=== PATIENT | female | born 1940 | race Caucasian/White ===

== ENCOUNTER → 2017-06-14 | Outpatient (CLI) | payer OTHER, MEDICARE | LOC: FIMAGING 12:18 | PROVIDERS: ATTEND Family Medicine Geriatric Medicine | DX: G81.94 Hemiplegia, unspecified affecting left nondominant side (principal); G31.9 Degenerative disease of nervous system, unspecified ==

== ENCOUNTER 2017-08-30 12:39 | Emergency (ER) | payer OTHER, MEDICARE ==
[2017-08-30 12:51] VITALS: BP 172/75; PULSE 53; RESP 19; TEMP 98.3; O2SAT 96
--- NOTE | 2017-08-30 15:10 | EDPHY ---
H & P Stated Complaint: Neck pain x one day. Time Seen by Provider: 08/30/17 14:55 HPI/ROS: CHIEF COMPLAINT: Neck pain HISTORY OF PRESENT ILLNESS: This patient is a 77 year old female with history of chronic neck pain complaining of severe neck pain intermittently for the last two weeks. She had fusion surgery in her lower back 10-12 years ago, and has had multiple procedures and orthopedic surgeries for arthritis. She has been evaluated at [facility] in the past, and MRI revealed bone spurs and disc bulges throughout her neck. Yesterday, her neck pain reached 10/10 severity with no known aggravation. This pain is similar to her severe back pain in the past. She now rates it around 8 or 9/10. The pain is increased with movement. She denies radiation of pain down either arm. No new weakness or numbness associated with her pain. She took two Tylenol last night, but has not tried anything else for pain relief. She saw her physical therapist yesterday for balance and walking therapy following frequent falls, and endorses pain when the therapist massaged her neck lightly. She denies any recent trauma or other concerns. REVIEW OF SYSTEMS: A 10 point review of systems was performed and is negative with the exception of the elements mentioned in the history of present illness. - Personal History Current Tetanus/Diphtheria Vaccine: Yes Current Tetanus Diphtheria and Acellular Pertussis (TDAP): Yes - Medical/Surgical History PMH: 1. Hyperlipidemia 2. CAD, stent placement 3. Myocardial infarction x2 4. Pancreatitis 5. Kidney stones 6. Hypertension 7. Asthma Hx Asthma: Yes Hx Chronic Respiratory Disease: No Hx Diabetes: No Hx Cardiac Disease: Yes Hx Renal Disease: Yes Hx Cirrhosis: No Hx Alcoholism: No Hx HIV/AIDS: No Hx Splenectomy or Spleen Trauma: No Other PMH: Cardiac stent, kidney stones, asthma, joint replacement - Social History Smoking Status: Never smoked Additional Social History: Lives independently at [facility]. PCP Dr. Shrestha. Retired. Recently moved back to [place]. - Physical Exam Exam: General Appearance: Alert, no distress Eyes: Pupils equal and round, no conjunctival pallor or injection ENT, Mouth: Mucous membranes moist Neck: Bilateral paraspinous tenderness Respiratory: Lungs are clear to auscultation Cardiovascular: Regular rate and rhythm Gastrointestinal: Abdomen is soft and non- tender Neurological: Alert, oriented x3, cranial nerves II through XII intact, motor 5 /5, sensory intact to light touch, normal gait, 2+ biceps reflexes Skin: Warm and dry, no rash Extremities: Nontender, no pedal edema Psychiatric: Mood and affect normal Constitutional: Initial Vital Signs Temperature (C) 36.8 C 08/30/17 12:45 Heart Rate 53 L 08/30/17 12:45 Respiratory Rate 19 08/30/17 12:45 Blood Pressure 172/75 H 08/30/17 12:45 O2 Sat (%) 96 08/30/17 12:45 O2 Delivery Mode Room Air Allergies/Adverse Reactions: diazepam [From Valium] Allergy (Verified 08/10/11 09:49) donepezil [From Aricept] Allergy (Verified 08/30/17 12:44) Home Medications: Medication Instructions Recorded AMLODIPINE BES/OLMESARTAN MED 2.5 DAILY 08/10/11 Aciphex 20 mg BID 08/10/11 Aspirin [Aspirin 81mg] 81 mg PO BID 08/10/11 B12 08/10/11 Calcium 08/10/11 Clopidogrel Bisulfate [Plavix] 75 mg PO DAILY 08/10/11 Clopidogrel Bisulfate [Plavix] 75 mg PO DAILY 08/10/11 FLUoxetine [Prozac] 40 mg PO DAILY 08/10/11 Lovaza 1 gm QID 08/10/11 METOPROLOL TARTRATE 25 mg PO BID 08/10/11 Nitroglycerin [Nitrostat] 0.4 mg SL 08/10/11 OXYGEN 08/10/11 Oxybutynin Chloride [Oxybutynin 10 mg PO DAILY 08/10/11 Chloride Er] VITAMIN D 08/10/11 LIZ KIRKLAND 15,000 UNITS CAPSULE QID 08/10/11 lamoTRIgine [Lamictal] 100 mg PO BID 08/10/11 Hydrocodone/APAP 5/325 [[place] 1 tab PO Q4H PRN #15 tab 08/30/17 5/325] Medical Decision Making ED Course/Re-evaluation: 77 year old female with history of chronic back pain and arthritis presents with worsening neck pain intermittent over the last two weeks. Physical exam reveals bilateral paraspinous tenderness. The patient is neurologically intact. We discussed further imaging studies today vs. follow up with her primary care provider. She is comfortable with outpatient follow up. Plan to discharge home in good condition with a prescription for Guy[place] for pain relief. Return precautions discussed. The patient is comfortable with this plan. Differential Diagnosis: Differential diagnosis includes though is not limited to compression fracture, epidural abscess, cervical radiculopathy, disc herniation Departure - Departure Disposition: Home, Routine, Self-Care Clinical Impression: Neck pain Condition: Good Instructions: Hydrocodone/Acetaminophen (By mouth), Neck Pain (ED) Additional Instructions: 1. Follow up with your primary care provider for further evaluation. Call today for an appointment to see her Saturday or Saturday. 2. Use ibuprofen and Tylenol as directed below for pain. Use Guy[place] as prescribed as needed for severe pain. Do not take Tylenol while you are taking Guy[place] as both these medications contain acetaminophen. 3. Return to the emergency department for severe pain, fever, weakness, numbness , or tingling, change in location or nature of pain or other concerns. Adult Pain Control: We recommend Acetaminophen (Tylenol) and Ibuprofen (Motrin,Advil) for pain control. When pain is severe, both drugs can be used at the same time, but at different intervals. Please note the time differences. Your dose is: Acetaminophen 650mg every 4 to 6 hours Ibuprofen 600mg every 6-8 hours with food Note: do not take Acetaminophen with Hydrocodone (Vicodin, Lortab) or Oxycodone (Percocet). These medications also contain Acetaminophen. No more than 3000mg of Acetaminophen should be taken in 24 hours (for an adult). Referrals: Trinity Linares MD [Primary Care Provider] - As per Instructions Prescriptions: Hydrocodone/APAP 5/325 [Guy[place] 5/325] 1 tab PO Q4H PRN #15 tab PRN Reason: Pain, Moderate Report Scribed for: Aspen Ngo Report Scribed by: Vika Salas Date of Report: 08/30/17 Time of Report: 15:11 Physician Review and Approval Statement: 08/30/17 15:11 Portions of this note were transcribed by a medical records tech. I personally performed a history, physical exam, medical decision making, and confirmed accuracy of information the transcribed note.
== END 2017-08-30 15:45 | disposition home or self-care (01) ==
DX: M54.2 Cervicalgia (principal); I25.10 Atherosclerotic heart disease of native coronary artery without angina pectoris; I10 Essential (primary) hypertension; I25.2 Old myocardial infarction; J45.909 Unspecified asthma, uncomplicated; Z79.82 Long term (current) use of aspirin; Z95.5 Presence of coronary angioplasty implant and graft

== ENCOUNTER 2019-03-18 09:07 | Inpatient (IN) | payer OTHER, MEDICARE ==
--- NOTE | 2019-03-18 09:42 | EDPHY ---
H & P Stated Complaint: dizzy, fall Time Seen by Provider: 03/18/19 09:20 HPI/ROS: CHIEF COMPLAINT: Dizzy HISTORY OF PRESENT ILLNESS: This is a an 78-year-old female with a history of coronary artery disease, Parkinson's disease, and hypertension who arrives by ambulance. She tells me that she was lying in bed this morning, sat up to look at her alarm clock, and had a sudden onset of spinning dizziness. When she tried to moved to get out of bed she fell to the floor. She has had similar symptoms in the past, but not this severe. She tells me that sometimes when she moves her head she gets a spinning sensation sensation and sometimes while at physical therapy with exertion she gets a spinning sensation. Last time this happened at physical therapy the therapist performed Marcus maneuvers and the dizziness resolved. She is feeling better now, no longer dizzy. She has not had nausea. She denies headache, confusion, difficulty with speech, new numbness, new weakness. She denies any chest pain or shortness of breath. She has not recently been ill. REVIEW OF SYSTEMS: A ten system review of systems was performed and is negative with the exception of the items mentioned in the HPI. Past medical history: 1. Parkinson's disease 2. Coronary artery disease status post stenting 3. Ureteral stones 4. Asthma 5. Hypertension 6. Bipolar Past surgical history: Joint replacement Social history: No tobacco or alcohol use. Trinity Linares, PCP. General Appearance: Alert. Vital signs reviewed. Eyes: Pupils equal and round, no conjunctival injection, no discharge. Anicteric. ENT, Mouth: Mucous membranes are moist, no oropharyngeal erythema or edema. Neck: No lymphadenopathy, supple. Respiratory: Lungs are clear to auscultation; no wheezes, rales, or rhonchi. Cardiovascular: Regular rate and rhythm; no murmur, rub, or gallop. Gastrointestinal: Abdomen is soft and nontender, no masses or organomegaly, bowel sounds normal. Skin: Warm and dry, no rashes on exposed skin, normal color. Back: Nontender to palpation over the thoracolumbar spine. No CVAT. Extremities: No lower extremity edema, no calf tenderness or swelling. Neurological: Alert and oriented. Moving all four extremities easily and equally. No nystagmus. Cranial nerves II through XII are examined and are intact (visual acuity not tested). Strength is 4 over 5 bilaterally with testing of all major motor groups, symmetric. Sensation is intact to light touch over all 4 extremities. Psychiatric: Normal affect. - Personal History Current Tetanus/Diphtheria Vaccine: Unsure Current Tetanus Diphtheria and Acellular Pertussis (TDAP): Unsure - Medical/Surgical History Hx Asthma: Yes Hx Chronic Respiratory Disease: No Hx Diabetes: No Hx Cardiac Disease: Yes Hx Renal Disease: Yes Hx Cirrhosis: No Hx Alcoholism: No Hx HIV/AIDS: No Hx Splenectomy or Spleen Trauma: No Other PMH: Cardiac stent, kidney stones, asthma, joint replacement, Parkinsons, arthritis, HTN - Social History Smoking Status: Never smoked Constitutional: Initial Vital Signs Temperature (C) 36.9 C 03/18/19 09:07 Heart Rate 67 03/18/19 09:07 Respiratory Rate 16 03/18/19 09:07 Blood Pressure 167/84 H 03/18/19 09:07 O2 Sat (%) 94 03/18/19 09:07 O2 Delivery Mode Room Air Allergies/Adverse Reactions: cat dander Allergy (Verified 03/18/19 13:37) diazepam [From Valium] Allergy (Verified 03/18/19 13:37) Vomiting Penicillins Allergy (Verified 03/18/19 13:37) Yeast Infection Home Medications: Medication Instructions Recorded Cholecalciferol Vit D3 [Vitamin D3 2,000 units PO DAILY 08/10/11 2000 units tab (OTC)] Cyanocobalamin [Vitamin B12 (*)] 1,000 mcg PO DAILY 08/10/11 FLUoxetine [Prozac] 40 mg PO DAILY 08/10/11 Lipase/Protease/Amylase [Zenpep Dr 1 each PO DAILY 08/10/11 15,000 Units Capsule] Aspirin [Aspirin 81mg (*)] 81 mg PO DAILY 03/18/19 C/E/Zn/Cu/OM3/DHA/EPA/LUT/ZEAX 1 each PO HS 03/18/19 [Preservision Areds 2 Softgel] Carbidopa/Levodopa 25/100Mg 3 tab PO TID@08,14,16 03/18/19 [Sinemet 25/100 MG (*)] Carboxymethylcellulose 1% [Refresh 1 drop EACHEYE DAILY PRN 03/18/19 Celluvisc (*)] Folic Acid [Folic Acid 1 MG (*)] 1 mg PO DAILY 03/18/19 Furosemide [Lasix 20 MG (*)] 20 mg PO DAILY 03/18/19 Herbals/Supplements -Info Only 1 ea PO DAILY 03/18/19 Icosapent Ethyl [Vascepa] 2 gm PO BID 03/18/19 Losartan Potassium [Cozaar 50 mg 75 mg PO HS 03/18/19 (*)] Mirabegron [Myrbetriq] 25 mg PO HS 03/18/19 Naproxen Sodium [Aleve 220 MG (*)] 220 mg PO BID PRN 03/18/19 Psyllium Husk (with Sugar) 1 each PO BID 03/18/19 [Metamucil Packet] Rivastigmine Tartrate 6 mg PO BID 03/18/19 [Rivastigmine] Rosuvastatin Calcium [Crestor 10mg 10 mg PO HS 03/18/19 (RX)] lamoTRIgine [LamICTAL 100 MG (*)] 150 mg PO DAILY 03/18/19 lamoTRIgine [Lamictal] 75 mg PO HS 03/18/19 Medical Decision Making ED Course/Re-evaluation: Patient initially stated that she was feeling better. CT scan of the brain shows no acute changes. Unfortunately, every time she tries to move her get out of the bed she becomes vertiginous and off balance. She was given p.o. Meclizine and 500 mL IV fluid with no relief. CBC and chemistries reviewed. She did not take any of her medications this morning. She quit taking her losartan because of a recall. She has not taken it for 2 days. She is noted to be hypertensive throughout her stay in the emergency department. Her dose of carbidopa levodopa was ordered for her. Her daughter tells me that she has not been taking any of her medications as prescribed. It seems that she may have missed her psychiatric medications for the last couple of days, perhaps longer. The patient lives independently at [facility]. She has a medication box with an alarm. It is possible that her dizziness is related to medication (or lack thereof). The nature of her dizziness is highly suggestive of benign positional vertigo. No obvious stroke or mass on head CT. May need MRI if she fails to improve. Will try valium for symptom relief. She is being admitted to the hospitalist service for further symptom treatment and evaluation. Differential Diagnosis: Dizziness including but not limited to peripheral and central causes of vertigo , orthostatic causes including dehydration, and blood loss. - Data Points Laboratory Results: Laboratory Results 03/18/19 10:00 03/18/19 10:00 Medications Given: Lipase/Protease/Amylase (Creon) 1 cap PO DAILY RONEY Stop: 09/15/19 08:59 Last Admin: 03/20/19 09:10 Dose: 1 cap Aspirin (Aspirin) 81 mg PO DAILY RONEY Stop: 09/15/19 08:59 Last Admin: 03/20/19 09:11 Dose: 81 mg Carbidopa/Levodopa (Sinemet) 3 tab PO TID@,12,16 RONEY Stop: 09/14/19 15:59 Last Admin: 03/20/19 09:11 Dose: 3 tab Enoxaparin Sodium (Lovenox) 40 mg SC DAILY RONEY Stop: 09/15/19 08:59 Last Admin: 03/20/19 09:13 Dose: 40 mg Fluoxetine HCl (Prozac) 40 mg PO DAILY RONEY Stop: 09/14/19 14:13 Last Admin: 03/20/19 09:13 Dose: 40 mg Folic Acid (Folic Acid) 1 mg PO DAILY RONEY Stop: 09/15/19 08:59 Last Admin: 03/20/19 09:13 Dose: 1 mg Furosemide (Lasix) 20 mg PO DAILY RONEY Stop: 09/15/19 08:59 Last Admin: 03/20/19 09:10 Dose: 20 mg Lamotrigine (Lamictal) 75 mg PO HS RONEY Stop: 09/14/19 20:59 Last Admin: 03/19/19 20:16 Dose: 75 mg Lamotrigine (Lamictal) 150 mg PO DAILY RONEY Stop: 09/14/19 15:14 Last Admin: 03/20/19 09:11 Dose: 150 mg Losartan Potassium (Cozaar) 75 mg PO HS RONEY Stop: 09/14/19 20:59 Last Admin: 03/19/19 20:14 Dose: 75 mg Meclizine HCl (Meclizine Hcl) 25 mg PO Q6H PRN PRN Reason: Dizziness Stop: 09/14/19 16:59 Last Admin: 03/19/19 07:37 Dose: 25 mg Psyllium Hydrophilic Mucilloid (Metamucil/Konsyl) 1 each PO BID RONEY Stop: 09/14/19 20:59 Last Admin: 03/20/19 09:10 Dose: 1 each Rivastigmine Tartrate (Exelon) 6 mg PO BID RONEY Stop: 09/14/19 20:59 Last Admin: 03/20/19 09:10 Dose: 6 mg Rosuvastatin Calcium (Crestor) 10 mg PO HS RONEY Stop: 09/14/19 20:59 Last Admin: 03/19/19 20:14 Dose: 10 mg Vitamin B Complex (Vitamin B12) 1,000 mcg PO DAILY RONEY Stop: 09/15/19 08:59 Last Admin: 03/20/19 09:13 Dose: 1,000 mcg Discontinued Medications Carbidopa/Levodopa (Sinemet Cr) 3 tab PO EDNOW ONE Stop: 03/18/19 12:51 Last Admin: 03/18/19 13:16 Dose: 3 tab Sodium Chloride (Ns) 500 mls @ 1,000 mls/hr IV EDNOW ONE PRN Reason: Protocol Stop: 03/18/19 11:37 Last Admin: 03/18/19 11:15 Dose: 500 mls Meclizine HCl (Meclizine Hcl) 25 mg PO ONCE ONE Stop: 03/18/19 11:09 Last Admin: 03/18/19 11:15 Dose: 25 mg Departure - Departure Disposition: [facility] Clinical Impression: Vertigo Hypertension Qualifiers: Hypertension type: essential hypertension Qualified Code(s): I10 - Essential ( primary) hypertension Condition: Fair
[2019-03-18 10:10] LABS: PLATELET COUNT 246 10^3/uL (150-400)
[2019-03-18] MEDS ORDERED: MECLIZINE HCL 25 MG TAB PO ONE (11:08)
[2019-03-18] MEDS ORDERED: NS 500 ML IV ONE (11:08)
[2019-03-18] MEDS ORDERED: CARBIDOPA/LEVO CR 25 MG/100 MG TAB PO ONE (12:50)
[2019-03-18] MEDS ORDERED: ONDANSETRON DISINTEGRATING 4 MG TAB PO PRN (13:11)
[2019-03-18] MEDS ORDERED: ACETAMINOPHEN 325 MG TAB PO PRN (13:11)
[2019-03-18] MEDS ORDERED: ONDANSETRON 4 MG/2 ML VIAL IVP PRN (13:11)
--- NOTE | 2019-03-18 14:08 | PDGENHP ---
History and Physical - Chief Complaint vertigo - History of Present Illness 78 yo female with h/o CAD, parkinsons, hypertension and bipolar presents to ED with dizziness. She awoke this am and when she sat up in bed, had sudden onset vertigo, which seemed positional. This caused her to fall out of bed. She denies hitting her head. Her symptoms have persisted. No N/V. She had a similar episode in the past, which resolved with Marcus's maneuver. In the ED a CT was negative for acute abnormality. She has ongoing symptoms with difficulty ambulating. She is admitted for further management. History Information - Allergies/Home Medication List Allergies/Adverse Reactions: cat dander Allergy (Verified 03/18/19 13:37) diazepam [From Valium] Allergy (Verified 03/18/19 13:37) Vomiting Penicillins Allergy (Verified 03/18/19 13:37) Yeast Infection Home Medications: Cholecalciferol Vit D3 [Vitamin D3 2000 units tab (OTC)] 2,000 units PO DAILY [Last Taken 03/17/19] Cyanocobalamin [Vitamin B12 (*)] 1,000 mcg PO DAILY 08/10/11 [Last Taken ] FLUoxetine [Prozac] 40 mg PO DAILY 08/10/11 [Last Taken 03/17/19] Lipase/Protease/Amylase [Zenpep Dr 15,000 Units Capsule] 1 each PO DAILY [Last Taken 03/17/19] Aspirin [Aspirin 81mg (*)] 81 mg PO DAILY 03/18/19 [Last Taken 03/17/19] C/E/Zn/Cu/OM3/DHA/EPA/LUT/ZEAX [Preservision Areds 2 Softgel] 1 each PO HS 03/18 [Last Taken 03/16/19] Carbidopa/Levodopa 25/100Mg [Sinemet 25/100 MG (*)] 3 tab PO TID@08,14,16 [Last Taken 03/17/19 14:00] Carboxymethylcellulose 1% [Refresh Celluvisc (*)] 1 drop EACHEYE DAILY PRN 03/18 [Last Taken Unknown] Folic Acid [Folic Acid 1 MG (*)] 1 mg PO DAILY 03/18/19 [Last Taken 03/17/19] Furosemide [Lasix 20 MG (*)] 20 mg PO DAILY 03/18/19 [Last Taken 03/17/19] Herbals/Supplements -Info Only 1 ea PO DAILY 03/18/19 [Last Taken Unknown] Icosapent Ethyl [Vascepa] 2 gm PO BID 03/18/19 [Last Taken 03/17/19 09:00] Losartan Potassium [Cozaar 50 mg (*)] 75 mg PO HS 03/18/19 [Last Taken 2 Weeks Ago ~03/04/19] Mirabegron [Myrbetriq] 25 mg PO HS 03/18/19 [Last Taken 03/16/19] Naproxen Sodium [Aleve 220 MG (*)] 220 mg PO BID PRN 03/18/19 [Last Taken Unknown] Psyllium Husk (with Sugar) [Metamucil Packet] 1 each PO BID 03/18/19 [Last Taken 03/17/19 09:00] Rivastigmine Tartrate [Rivastigmine] 6 mg PO BID 03/18/19 [Last Taken 03/17/19 09:00] Rosuvastatin Calcium [Crestor 10mg (RX)] 10 mg PO HS 03/18/19 [Last Taken ] lamoTRIgine [LamICTAL 100 MG (*)] 150 mg PO DAILY 03/18/19 [Last Taken 03/17/19] lamoTRIgine [Lamictal] 75 mg PO HS 03/18/19 [Last Taken 03/16/19] I have personally reviewed and updated: family history, medical history, social history, surgical history - Past Medical History coronary artery disease, hypertension Additional medical history: CAD with h/o [place] and prior stents. Parkinsons. Asthma. Bipolar d/o. H/O BPPV - Surgical History Reports: coronary stent Additional surgical history: joint replacement - Family History Positive for: non-pertinent - Social History Smoking Status: Never smoked Alcohol Use: None Drug Use: None Review of Systems Review of Systems: ROS: 10pt was reviewed & negative except for what was stated in HPI & below Physical Exam Physical Exam: Temp Pulse Resp BP Pulse Ox 36.9 C 81 16 129/59 H 94 03/18/19 14:00 03/18/19 14:00 03/18/19 14:00 03/18/19 14:00 03/18/19 14:00 Constitutional: no apparent distress Eyes: PERRL, other (+horizontal nystagmus to left) Ears, Nose, Mouth, Throat: moist mucous membranes Cardiovascular: regular rate and rhythym Respiratory: no respiratory distress, clear to auscultation Gastrointestinal: normoactive bowel sounds, soft, non-tender abdomen Skin: warm Musculoskeletal: full muscle strength Neurologic: AAOx3 Psychiatric: interacting appropriately Lab Data & Imaging Review 03/18/19 10:00 03/18/19 10:00 WBC 7.92 10^3/uL (3.80-9.50) 03/18/19 10:00 RBC 4.56 10^6/uL (4.18-5.33) 03/18/19 10:00 Hgb 13.9 g/dL (12.6-16.3) 03/18/19 10:00 Hct 42.0 % (38.0-47.0) 03/18/19 10:00 MCV 92.1 fL (81.5-99.8) 03/18/19 10:00 MCH 30.5 pg (27.9-34.1) 03/18/19 10:00 MCHC 33.1 g/dL (32.4-36.7) 03/18/19 10:00 RDW 13.4 % (11.5-15.2) 03/18/19 10:00 Plt Count 246 10^3/uL (150-400) 03/18/19 10:00 MPV 8.6 fL (8.7-11.7) L 03/18/19 10:00 Neut % (Auto) 75.1 % (39.3-74.2) H 03/18/19 10:00 Lymph % (Auto) 14.8 % (15.0-45.0) L 03/18/19 10:00 [place] % (Auto) 7.2 % (4.5-13.0) 03/18/19 10:00 Eos % (Auto) 2.1 % (0.6-7.6) 03/18/19 10:00 Baso % (Auto) 0.5 % (0.3-1.7) 03/18/19 10:00 Nucleat RBC Rel Count 0.0 % (0.0-0.2) 03/18/19 10:00 Absolute Neuts (auto) 5.95 10^3/uL (1.70-6.50) 03/18/19 10:00 Absolute Lymphs (auto) 1.17 10^3/uL (1.00-3.00) 03/18/19 10:00 Absolute Monos (auto) 0.57 10^3/uL (0.30-0.80) 03/18/19 10:00 Absolute Eos (auto) 0.17 10^3/uL (0.03-0.40) 03/18/19 10:00 Absolute Basos (auto) 0.04 10^3/uL (0.02-0.10) 03/18/19 10:00 Absolute Nucleated RBC 0.00 10^3/uL (0-0.01) 03/18/19 10:00 Immature Gran % 0.3 % (0.0-1.1) 03/18/19 10:00 Immature Gran # 0.02 10^3/uL (0.00-0.10) 03/18/19 10:00 Sodium 139 mEq/L (135-145) 03/18/19 10:00 Potassium 4.0 mEq/L (3.5-5.2) 03/18/19 10:00 Chloride 107 mEq/L (97-110) 03/18/19 10:00 Carbon Dioxide 28 mEq/l (22-31) 03/18/19 10:00 Anion Gap 4 mEq/L (6-14) L 03/18/19 10:00 BUN 18 mg/dL (7-23) 03/18/19 10:00 Creatinine 0.8 mg/dL (0.6-1.0) 03/18/19 10:00 Estimated GFR > 60 03/18/19 10:00 Glucose 96 mg/dL (70-100) 03/18/19 10:00 Calcium 9.7 mg/dL (8.5-10.4) 03/18/19 10:00 Assessment & Plan Assessment: Vertigo (Acute) - CT head neg. Presumed BPPV noting prior h/o similar symptoms resolved by Marcus's maneuver. -check MRI -prn meclizine, anti-emetics -PT/OT with Marcus's if able to do inpt -hold myrbetriq which can cause dizziness CAD with h/o [place] and prior stents - stable, CP free -cont home meds Hypertension - currently normotensive -cont home meds Parkinsons - cont home meds Asthma - no e/o exacerbation DVT PPLX - Lovenox Dispo - change to inpt for ongoing vertigo, need for further evaluation and tx
[2019-03-18] MEDS ORDERED: CARBOXYMETHYLCELLULOSE 1% 0.4 ML DROPERETTE EACHEYE PRN (14:13)
[2019-03-18] MEDS ORDERED: lamoTRIgine 100 MG TAB PO ONE (15:15)
[2019-03-18] MEDS ORDERED: FLUoxetine 20 MG CAP PO ONE (15:15)
[2019-03-18] MEDS: FLUoxetine 20 MG CAP PO SCH (15:28)
[2019-03-18] MEDS: CARBIDOPA/LEVODOPA 25 MG/100 MG TAB PO SCH (15:28)
[2019-03-18] MEDS: lamoTRIgine 100 MG TAB PO SCH (15:28)
[2019-03-18] MEDS ORDERED: CARBIDOPA/LEVODOPA 25 MG/100 MG TAB PO SCH (16:00)
[2019-03-18] MEDS: LOSARTAN POTASSIUM 50 MG TAB PO SCH (21:39)
[2019-03-18] MEDS: RIVASTIGMINE TARTRATE 1.5 MG CAP PO SCH (21:42)
[2019-03-18] MEDS: ROSUVASTATIN CALCIUM 10 MG TAB PO SCH (21:43)
[2019-03-18] MEDS: lamoTRIgine 25 MG TAB PO SCH (21:43)
[2019-03-18] MEDS: PSYLLIUM METAMUCIL 1 PKT PO SCH (21:44)
[2019-03-19] MEDS: MECLIZINE HCL 25 MG TAB PO PRN (07:37)
[2019-03-19] MEDS: CARBIDOPA/LEVODOPA 25 MG/100 MG TAB PO SCH ×3 (07:37→20:13)
[2019-03-19] MEDS ORDERED: lamoTRIgine 100 MG TAB PO SCH (09:00)
[2019-03-19] MEDS ORDERED: PROTEASE PO SCH (09:00)
[2019-03-19] MEDS ORDERED: AMYLASE PO SCH (09:00)
[2019-03-19] MEDS ORDERED: LIPASE PO SCH (09:00)
[2019-03-19] MEDS: ENOXAPARIN 40 MG/0.4 ML SYR SC SCH (09:56)
[2019-03-19] MEDS: FUROSEMIDE 20 MG TAB PO SCH (09:56)
[2019-03-19] MEDS: ASPIRIN 81 MG CHEWABLE TAB PO SCH (09:56)
[2019-03-19] MEDS: FLUoxetine 20 MG CAP PO SCH (09:56)
[2019-03-19] MEDS: PSYLLIUM METAMUCIL 1 PKT PO SCH ×2 (09:56→20:25)
[2019-03-19] MEDS: FOLIC ACID 1 MG TAB PO SCH (09:56)
[2019-03-19] MEDS: lamoTRIgine 100 MG TAB PO SCH (09:56)
[2019-03-19] MEDS: CYANO/VITAMIN B12 1000 MCG TAB PO SCH (09:57)
[2019-03-19] MEDS: LIPASE 12,000/AMYLASE/PROTEASE (CREON) 1 CAP PO SCH (09:57)
[2019-03-19] MEDS: RIVASTIGMINE TARTRATE 1.5 MG CAP PO SCH ×2 (09:57→20:16)
--- NOTE | 2019-03-19 12:56 | ASMTCMCOM ---
CM Note CM Note Notes: 03/19/2019 Case Management Note Pt admitted for dizziness with a history of Parkinsons and bipolar. Met w/pt. Pt resides [facility]. Pt attends PT OT with [facility]. Pt uses [facility] for transport or [facility]. Pt daughter nearby for help. Discussed home care. Pt chose [facility]. Notified via allscripts and phone. Case Management d/c poc: Home with [facility] RN PT OT. Case Management to follow. Date Signed: 03/19/2019 12:56 PM Electronically Signed By:Martha Laughlin RN
--- NOTE | 2019-03-19 13:08 | HOSPPROG ---
Hospitalist Progress Note Assessment/Plan: Vertigo (Acute) - CT head neg. Presumed BPPV noting prior h/o similar symptoms resolved by Marcus's maneuver. -prn meclizine, anti-emetics -PT/OT with Marcus's if able to do inpt -hold myrbetriq which can cause dizziness -will check orthostatics (neg) -defer MRI given clinically improving CAD with h/o [place] and prior stents - stable, CP free -cont home meds Hypertension - currently normotensive -cont home meds Parkinsons - cont home meds Asthma - no e/o exacerbation DVT PPLX - Lovenox Dispo - change to inpt for ongoing vertigo, need for acute PT/OT, pt not feeling ready for dc yet, likely dc in am Subjective: Pt doing a little better. Ambulating in halls with walker, but doesn't feel safe discharging home yet. No N/V. No headaches. Less dizzy, but not completely resolved. Objective: Vital Signs Temp Pulse Resp BP Pulse Ox 36.6 C 71 16 134/63 H 92 03/19/19 11:30 03/19/19 11:30 03/19/19 11:30 03/19/19 11:30 03/19/19 11:30 03/18/19 03/19/19 03/20/19 05:59 05:59 05:59 Intake Total 1400 Balance 1400 - Physical Exam Constitutional: no apparent distress Eyes: PERRL Ears, Nose, Mouth, Throat: moist mucous membranes Cardiovascular: regular rate and rhythym Respiratory: no respiratory distress Gastrointestinal: normoactive bowel sounds, soft, non-tender abdomen Skin: warm Neurologic: AAOx3 Psychiatric: interacting appropriately ICD10 Worksheet Patient Problems: Problems Problem Status Onset Vertigo Acute
--- NOTE | 2019-03-19 16:17 | PDMN ---
Medical Necessity Medical necessity: Change to IP, as of 03/19/19, per MD & MCG M-152; los >2 mn for ongoing management of persistent vertigo (presumed BPPV); requiring further monitoring, orthostatic vitals & therapies; comorbid advanced age, parkinsons, CAD
[2019-03-19] MEDS: LOSARTAN POTASSIUM 50 MG TAB PO SCH (20:14)
[2019-03-19] MEDS: ROSUVASTATIN CALCIUM 10 MG TAB PO SCH (20:14)
[2019-03-19] MEDS: lamoTRIgine 25 MG TAB PO SCH (20:16)
[2019-03-20] MEDS: FUROSEMIDE 20 MG TAB PO SCH (09:10)
[2019-03-20] MEDS: PSYLLIUM METAMUCIL 1 PKT PO SCH ×2 (09:10→20:22)
[2019-03-20] MEDS: RIVASTIGMINE TARTRATE 1.5 MG CAP PO SCH ×2 (09:10→20:21)
[2019-03-20] MEDS: LIPASE 12,000/AMYLASE/PROTEASE (CREON) 1 CAP PO SCH (09:10)
[2019-03-20] MEDS: ASPIRIN 81 MG CHEWABLE TAB PO SCH (09:11)
[2019-03-20] MEDS: CARBIDOPA/LEVODOPA 25 MG/100 MG TAB PO SCH ×3 (09:11→18:07)
[2019-03-20] MEDS: lamoTRIgine 100 MG TAB PO SCH (09:11)
[2019-03-20] MEDS: ENOXAPARIN 40 MG/0.4 ML SYR SC SCH (09:13)
[2019-03-20] MEDS: FOLIC ACID 1 MG TAB PO SCH (09:13)
[2019-03-20] MEDS: FLUoxetine 20 MG CAP PO SCH (09:13)
[2019-03-20] MEDS: CYANO/VITAMIN B12 1000 MCG TAB PO SCH (09:13)
--- NOTE | 2019-03-20 09:18 | HOSPPROG ---
Hospitalist Progress Note Assessment/Plan: #Vertigo: improved today. CT head neg. Presumed BPPV noting prior h/o similar symptoms resolved by Marcus's maneuver. -prn meclizine, anti-emetics -PT/OT with Marcus's if able to do inpt -hold myrbetriq which can cause dizziness -will check orthostatics (neg) -defer MRI given clinically improving #CAD with h/o RI and prior stents - stable, CP free -cont home meds #Hypertension - currently normotensive -cont home meds #Parkinsons - cont home meds #Asthma - no e/o exacerbation DVT PPLX - Lovenox Dispo -inpatient admission for continued therapies. Pt not feeling ready for dc yet, likely dc in am Subjective: vertigo improved after therapy today Objective: Vital Signs Temp Pulse Resp BP Pulse Ox 36.6 C 67 17 163/84 H 90 L 03/20/19 07:08 03/20/19 07:08 03/20/19 07:08 03/20/19 07:08 03/20/19 07:08 03/19/19 03/20/19 03/21/19 05:59 05:59 05:59 Intake Total 800 Balance 800 - Time Spent With Patient Time Spent with Patient: greater than 35 minutes Time Spent with Patient: Greater than 35 minutes spent on this patients care, greater than 50% of time spent counseling, educating, and coordinating care regarding the above mentioned plan. - Physical Exam Constitutional: no apparent distress Eyes: PERRL Ears, Nose, Mouth, Throat: moist mucous membranes Cardiovascular: regular rate and rhythym Respiratory: no respiratory distress Gastrointestinal: normoactive bowel sounds Genitourinary: no bladder fullness Skin: warm Neurologic: AAOx3, CN II-XII Intact Psychiatric: interacting appropriately ICD10 Worksheet Patient Problems: Problems Problem Status Onset Hypertension Acute Vertigo Acute
--- NOTE | 2019-03-20 11:51 | ASMTCMCOM ---
CM Note CM Note Notes: CM reviewed pts chart. PT is recommending pt follows up with outpatient rehab. OT has cleared pt to d/c home without any needs. CM available for changes. Plan: Independent Date Signed: 03/20/2019 11:50 AM Electronically Signed By:LIDIA Butcher
[2019-03-20] MEDS: MECLIZINE HCL 25 MG TAB PO PRN (18:10)
[2019-03-20] MEDS: LOSARTAN POTASSIUM 50 MG TAB PO SCH (20:21)
[2019-03-20] MEDS: ROSUVASTATIN CALCIUM 10 MG TAB PO SCH (20:22)
[2019-03-20] MEDS: lamoTRIgine 25 MG TAB PO SCH (20:22)
[2019-03-21] MEDS: MELATONIN 3 MG TAB PO PRN ×2 (00:31→20:55)
[2019-03-21] MEDS: RIVASTIGMINE TARTRATE 1.5 MG CAP PO SCH ×2 (10:11→20:56)
[2019-03-21] MEDS: FUROSEMIDE 20 MG TAB PO SCH (10:12)
[2019-03-21] MEDS: CARBIDOPA/LEVODOPA 25 MG/100 MG TAB PO SCH ×3 (10:12→18:26)
[2019-03-21] MEDS: LIPASE 12,000/AMYLASE/PROTEASE (CREON) 1 CAP PO SCH (10:12)
[2019-03-21] MEDS: lamoTRIgine 100 MG TAB PO SCH (10:12)
[2019-03-21] MEDS: CYANO/VITAMIN B12 1000 MCG TAB PO SCH (10:13)
[2019-03-21] MEDS: ASPIRIN 81 MG CHEWABLE TAB PO SCH (10:13)
[2019-03-21] MEDS: ENOXAPARIN 40 MG/0.4 ML SYR SC SCH (10:13)
[2019-03-21] MEDS: FLUoxetine 20 MG CAP PO SCH (10:13)
[2019-03-21] MEDS: FOLIC ACID 1 MG TAB PO SCH (10:18)
[2019-03-21] MEDS: PSYLLIUM METAMUCIL 1 PKT PO SCH ×2 (10:19→21:05)
[2019-03-21] MEDS ORDERED: NS 1,000 ML IV SCH (11:30)
--- NOTE | 2019-03-21 11:30 | HOSPPROG ---
Hospitalist Progress Note Assessment/Plan: #Vertigo: not improved. CT head neg. Presumed BPPV, but symptoms not improved with Marcus's -MRI to r/o cerebellar stroke #CAD with h/o NV and prior stents - stable, CP free -cont home meds #Hypertension - currently normotensive -cont home meds #Parkinsons - cont home meds #Asthma - no e/o exacerbation DVT PPLX - Lovenox Dispo -inpatient admission for continued therapies. Pt not feeling ready for dc yet, likely dc in am Subjective: still nauseated this morning. Dizziness persistent, kelly laying back Objective: Vital Signs Temp Pulse Resp BP Pulse Ox 36.6 C 56 L 16 165/67 H 94 03/21/19 07:24 03/21/19 07:24 03/21/19 07:24 03/21/19 07:24 03/21/19 07:24 03/20/19 03/21/19 03/22/19 05:59 05:59 05:59 Intake Total 800 Balance 800 - Time Spent With Patient Time Spent with Patient: greater than 35 minutes Time Spent with Patient: Greater than 35 minutes spent on this patients care, greater than 50% of time spent counseling, educating, and coordinating care regarding the above mentioned plan. - Physical Exam Constitutional: other (tired) Eyes: PERRL Ears, Nose, Mouth, Throat: moist mucous membranes Cardiovascular: regular rate and rhythym Respiratory: no respiratory distress Gastrointestinal: normoactive bowel sounds Genitourinary: no bladder fullness Skin: warm Musculoskeletal: full muscle strength Neurologic: AAOx3, sensation intact bilaterally, CN II-XII Intact Psychiatric: interacting appropriately ICD10 Worksheet Patient Problems: Problems Problem Status Onset Hypertension Acute Vertigo Acute
[2019-03-21] MEDS: LOSARTAN POTASSIUM 50 MG TAB PO SCH (20:55)
[2019-03-21] MEDS: ROSUVASTATIN CALCIUM 10 MG TAB PO SCH (20:55)
[2019-03-21] MEDS: lamoTRIgine 25 MG TAB PO SCH (20:56)
[2019-03-22] MEDS: ENOXAPARIN 40 MG/0.4 ML SYR SC SCH (08:52)
[2019-03-22] MEDS: FUROSEMIDE 20 MG TAB PO SCH (08:53)
[2019-03-22] MEDS: CYANO/VITAMIN B12 1000 MCG TAB PO SCH (08:53)
[2019-03-22] MEDS: LIPASE 12,000/AMYLASE/PROTEASE (CREON) 1 CAP PO SCH (08:53)
[2019-03-22] MEDS: lamoTRIgine 100 MG TAB PO SCH (08:53)
[2019-03-22] MEDS: CARBIDOPA/LEVODOPA 25 MG/100 MG TAB PO SCH ×3 (08:53→17:08)
[2019-03-22] MEDS: ASPIRIN 81 MG CHEWABLE TAB PO SCH (08:53)
[2019-03-22] MEDS: FLUoxetine 20 MG CAP PO SCH (08:54)
[2019-03-22] MEDS: FOLIC ACID 1 MG TAB PO SCH (08:54)
[2019-03-22] MEDS: PSYLLIUM METAMUCIL 1 PKT PO SCH ×2 (11:09→21:22)
[2019-03-22] MEDS: RIVASTIGMINE TARTRATE 1.5 MG CAP PO SCH ×2 (12:38→21:22)
[2019-03-22] MEDS ORDERED: NS 1,000 ML IV SCH (13:00)
--- NOTE | 2019-03-22 15:07 | ASMTCMCOM ---
CM Note CM Note Notes: CM met with pt. Pt has been accepted and wants to discharged to [facility]. [facility] has been notified that Pt will most likely be discharged 03/23. CM to follow. Plan: [facility] Date Signed: 03/22/2019 03:07 PM Electronically Signed By:Laura Gaffney
--- NOTE | 2019-03-22 16:15 | HOSPPROG ---
Hospitalist Progress Note Assessment/Plan: #Vertigo: not improved. CT head neg. Presumed BPPV. Eply's not performed due to chronic neck pain -MRI to r/o cerebellar stroke -query if due to increase dose of Parkinson's meds. Will call her Neurologist tomorrow -check BMP, TSH #CAD with h/o CA and prior stents - stable, CP free -cont home meds #Hypertension - currently normotensive -cont home meds #Parkinsons - cont home med #Asthma - no e/o exacerbation DVT PPLX - Lovenox Dispo -inpatient admission for continued therapies. Accepted to [facility] Spoke with daughter, Angelica on phone. Sinemet be upitrated by Dr. Lynne (Neuro ) over past few weeks. Subjective: mild dizziness today. No emesis Objective: Vital Signs Temp Pulse Resp BP Pulse Ox 36.5 C 71 22 H 125/82 H 93 03/22/19 15:49 03/22/19 15:49 03/22/19 15:49 03/22/19 15:49 03/22/19 15:49 Laboratory Results 03/22/19 13:30 03/21/19 03/22/19 03/23/19 05:59 05:59 05:59 Intake Total 400 480 Balance 400 480 - Time Spent With Patient Time Spent with Patient: greater than 35 minutes Time Spent with Patient: Greater than 35 minutes spent on this patients care, greater than 50% of time spent counseling, educating, and coordinating care regarding the above mentioned plan. - Physical Exam Constitutional: no apparent distress, other Eyes: PERRL Ears, Nose, Mouth, Throat: moist mucous membranes Cardiovascular: regular rate and rhythym Respiratory: no respiratory distress Gastrointestinal: normoactive bowel sounds Genitourinary: no bladder fullness Musculoskeletal: generalized weakness Neurologic: AAOx3, CN II-XII Intact, other (resting tremor) ICD10 Worksheet Patient Problems: Problems Problem Status Onset Hypertension Acute Vertigo Acute
[2019-03-22] MEDS: LOSARTAN POTASSIUM 50 MG TAB PO SCH (21:21)
[2019-03-22] MEDS: MELATONIN 3 MG TAB PO PRN (21:21)
[2019-03-22] MEDS: ROSUVASTATIN CALCIUM 10 MG TAB PO SCH (21:21)
[2019-03-22] MEDS: lamoTRIgine 25 MG TAB PO SCH (21:22)
[2019-03-22] MEDS: (Icosapent Ethyl [Vascepa] 2 GM) PO SCH (21:24)
[2019-03-22] MEDS: PRESERVISION AREDS2 FORMULA EYE VIT 1 EACH PO SCH (21:24)
[2019-03-23] MEDS: traZODone 50 MG TAB PO PRN ×2 (02:36→21:15)
[2019-03-23] MEDS ORDERED: Herbals/Supplements -Info Only PO SCH (09:00)
[2019-03-23] MEDS: CYANO/VITAMIN B12 1000 MCG TAB PO SCH (09:37)
[2019-03-23] MEDS: CARBIDOPA/LEVODOPA 25 MG/100 MG TAB PO SCH ×3 (09:37→16:24)
[2019-03-23] MEDS: CHOLECALCIFEROL VIT D3 2,000 UNITS TAB/CAP PO SCH (09:38)
[2019-03-23] MEDS: LIPASE 12,000/AMYLASE/PROTEASE (CREON) 1 CAP PO SCH (09:38)
[2019-03-23] MEDS: FLUoxetine 20 MG CAP PO SCH (09:38)
[2019-03-23] MEDS: ASPIRIN 81 MG CHEWABLE TAB PO SCH (09:38)
[2019-03-23] MEDS: FUROSEMIDE 20 MG TAB PO SCH (09:38)
[2019-03-23] MEDS: FOLIC ACID 1 MG TAB PO SCH (09:38)
[2019-03-23] MEDS: lamoTRIgine 100 MG TAB PO SCH (09:39)
[2019-03-23] MEDS: ENOXAPARIN 40 MG/0.4 ML SYR SC SCH (09:39)
[2019-03-23] MEDS: (Icosapent Ethyl [Vascepa] 2 GM) PO SCH ×2 (09:39→21:17)
[2019-03-23] MEDS: PSYLLIUM METAMUCIL 1 PKT PO SCH ×2 (09:40→21:16)
[2019-03-23] MEDS: RIVASTIGMINE TARTRATE 1.5 MG CAP PO SCH ×2 (10:23→21:15)
[2019-03-23] MEDS: MECLIZINE HCL 25 MG TAB PO PRN (13:22)
--- NOTE | 2019-03-23 13:47 | HOSPPROG ---
Hospitalist Progress Note Assessment/Plan: #Vertigo: not improved. CT head neg. Presumed BPPV. Eply's not performed due to chronic neck pain -MRI negative for stroke -query if due to increase dose of Parkinson's meds? Left VM for Dr. Lynne ( primary Neurologist -normal orthostatics, BMP/TSH WNL. Check carotid U/S #CAD with h/o SD and prior stents - stable, CP free -cont home meds #Hypertension - currently normotensive -cont home meds #Parkinsons - cont home med #Asthma - no e/o exacerbation DVT PPLX - Lovenox Dispo -inpatient admission for continued therapies. CM assisting with SNF placement Subjective: hallucinations last night. Still some vertigo when lays straight back, not with peipheral movements Objective: Vital Signs Temp Pulse Resp BP Pulse Ox 36.5 C 70 17 111/53 L 92 03/23/19 12:00 03/23/19 12:00 03/23/19 12:00 03/23/19 12:00 03/23/19 12:00 Laboratory Results 03/22/19 13:30 03/22/19 03/23/19 03/24/19 05:59 05:59 05:59 Intake Total 400 980 Balance 400 980 - Time Spent With Patient Time Spent with Patient: greater than 35 minutes Time Spent with Patient: Greater than 35 minutes spent on this patients care, greater than 50% of time spent counseling, educating, and coordinating care regarding the above mentioned plan. - Physical Exam Constitutional: other (fatigued) Ears, Nose, Mouth, Throat: moist mucous membranes, No hard of hearing Cardiovascular: regular rate and rhythym, No edema Respiratory: no respiratory distress Gastrointestinal: normoactive bowel sounds Genitourinary: no bladder fullness Skin: warm Neurologic: AAOx3, CN II-XII Intact, other (resting tremor) ICD10 Worksheet Patient Problems: Problems Problem Status Onset Hypertension Acute Vertigo Acute
--- NOTE | 2019-03-23 15:08 | ASMTCMCOM ---
CM Note CM Note Notes: Spoke with patient who was having some doubts about [facility]. Patient's questions and concerns were addressed and she is now supportive of going to [facility]. Patient did state she was not feeling well at all today and she had a return of serious vertigo and hallucinations. She wonders if her medications could be part of this. She hopes to see a neurologist while she is here for a consult. Spoke with Dr. Corrales to let her know patient's concerns. Discharge may be delayed until tomorrow while Dr. Corrales investigates patient's current symptoms. CM will follow. Date Signed: 03/23/2019 03:04 PM Electronically Signed By:Lauren Fraga LCSW
[2019-03-23] MEDS ORDERED: NS 1,000 ML IV SCH (16:00)
[2019-03-23] MEDS: LOSARTAN POTASSIUM 50 MG TAB PO SCH (21:15)
[2019-03-23] MEDS: PRESERVISION AREDS2 FORMULA EYE VIT 1 EACH PO SCH (21:15)
[2019-03-23] MEDS: ROSUVASTATIN CALCIUM 10 MG TAB PO SCH (21:16)
[2019-03-23] MEDS: lamoTRIgine 25 MG TAB PO SCH (21:16)
[2019-03-24] MEDS: CYANO/VITAMIN B12 1000 MCG TAB PO SCH (09:37)
[2019-03-24] MEDS: FLUoxetine 20 MG CAP PO SCH (09:37)
[2019-03-24] MEDS: LIPASE 12,000/AMYLASE/PROTEASE (CREON) 1 CAP PO SCH (09:37)
[2019-03-24] MEDS: CHOLECALCIFEROL VIT D3 2,000 UNITS TAB/CAP PO SCH (09:37)
[2019-03-24] MEDS: CARBIDOPA/LEVODOPA 25 MG/100 MG TAB PO SCH ×3 (09:38→17:20)
[2019-03-24] MEDS: lamoTRIgine 100 MG TAB PO SCH (09:39)
[2019-03-24] MEDS: FOLIC ACID 1 MG TAB PO SCH (09:39)
[2019-03-24] MEDS: RIVASTIGMINE TARTRATE 1.5 MG CAP PO SCH ×2 (09:40→20:02)
[2019-03-24] MEDS: ENOXAPARIN 40 MG/0.4 ML SYR SC SCH (09:40)
[2019-03-24] MEDS: (Icosapent Ethyl [Vascepa] 2 GM) PO SCH ×2 (09:41→20:11)
[2019-03-24] MEDS: PSYLLIUM METAMUCIL 1 PKT PO SCH ×2 (09:41→20:09)
[2019-03-24] MEDS: ASPIRIN 81 MG CHEWABLE TAB PO SCH (09:44)
--- NOTE | 2019-03-24 12:19 | PDIAF ---
- Diagnosis Diagnosis: Vertigo, parkinson's Code Status: Do Not Resuscitate - Medication Management Discharge Medications: electronically signed and located in the Home Medication List. - Orders Services needed: Registered Nurse, Certified Para Machine Operator, Physical Therapy, Occupational Therapy Diet Recommendation: no restrictions on diet Diet Texture: Regular Texture Diet Additional Instructions: Follow up with Neurologist. Dr. Lynne - Follow Up Care Current Providers and Referrals: Patient,NotPresent [Unknown] - As per Instructions
--- NOTE | 2019-03-24 12:47 | GDS ---
[f rep st] DISCHARGE SUMMARY DISCHARGE DIAGNOSES: 1. Vertigo. 2. Parkinson disease. 3. Hypertension. 4. Coronary artery disease with history of myocardial infarction and prior stents. 5. Asthma. 6. Bipolar disorder. HISTORY OF PRESENT ILLNESS: A 78-year-old female with Parkinson disease, CAD, bipolar disorder, pres ents with dizziness/vertigo. She woke up this morning. When she sat in bed she had a sudden onset o f vertigo which seems positional. This caused her to fall out of bed. She denies hitting her head o r having loss of consciousness. She had a similar episode in the past, which resolved with Marcus man euvers. CT in the ER was negative for acute abnormality. She had difficulty ambulating, thus requir ed further inpatient evaluation. HOSPITAL COURSE BY PROBLEM: 1. Vertigo/dizziness: Symptoms improved with meclizine, but not with Marcus maneuvers. Initial CT h ead was negative. Given persistent symptoms, MRI was done and was negative for stroke. Carotid ultr asound also normal. She had normal orthostatics, but borderline blood pressure. Normal electrolytes , TSH. Discontinue Lasix. This might be contributing to dehydration. 2. Parkinson disease. She has had increased hallucinations. I spoke to her neurologist at [facility], Dr. Lynne, who recommended decreasing dose to 2.5 tabs 3 times a day. His office will call to make an ap pointment sooner than her scheduled one now. 3. Asthma. No exacerbation. 4. Hypertension. Resume home medications. 5. CAD. Chest-pain free. Continue aspirin and statin. 6. Overactive bladder. Discontinue Myrbetriq since it can cause increased hallucinations. DISPOSITION: Patient is stable for discharge to rehab. MEDICATION CHANGES: Discontinued Lasix 20 mg daily and Myrbetriq. FOLLOWUP: 1. Dr. Lynne. 2. Primary care physician. PHYSICAL EXAMINATION: VITAL SIGNS: Today, temperature is 113/40, heart rate in the 70s, respiration s 16, 93% on room air. GENERAL: Less fatigued, smiling, no acute distress HEENT: PERRLA. Moist mu cous membranes. CV: Regular rhythm. No lower extremity edema. LUNGS: Clear. ABDOMEN: Soft, non tender, nondistended. Positive bowel sounds. : No Mar. NEURO: 2 through 12 intact. PSYCH: Alert and oriented x3. TIME SPENT ON DISCHARGE: Greater 30 minutes counseling patient on followup and coordinating with marium e management. /[id number]/MODL
--- NOTE | 2019-03-24 15:48 | HOSPPROG ---
Hospitalist Progress Note Assessment/Plan: DC canceled due to insurance authorization. Will DC tomorrow Objective: Vital Signs Temp Pulse Resp BP Pulse Ox 36.5 C 72 16 112/55 L 91 L 03/24/19 15:47 03/24/19 15:47 03/24/19 15:47 03/24/19 15:47 03/24/19 15:47 Laboratory Results 03/22/19 13:30 03/23/19 03/24/19 03/25/19 05:59 05:59 05:59 Intake Total 980 550 Balance 980 550 ICD10 Worksheet Patient Problems: Problems Problem Status Onset Hypertension Acute Vertigo Acute
--- NOTE | 2019-03-24 16:28 | ASMTCMCOM ---
CM Note CM Note Notes: Spoke with [facility] who thought patient was going to change to home health care. Patient will need SNF placement and so a PASRR was completed and submitted for the patient. CM to talk to Harman tomorrow to see if we can expedite the process ([phone]). Patient was informed about the need for some additional paperwork which will slightly delay the discharge. [facility] has accepted but the PASRR triggered. CM will follow. Date Signed: 03/24/2019 04:27 PM Electronically Signed By:Lauren Fraga LCSW
[2019-03-24] MEDS: LOSARTAN POTASSIUM 50 MG TAB PO SCH (20:01)
[2019-03-24] MEDS: lamoTRIgine 25 MG TAB PO SCH (20:02)
[2019-03-24] MEDS: PRESERVISION AREDS2 FORMULA EYE VIT 1 EACH PO SCH (20:03)
[2019-03-24] MEDS: ROSUVASTATIN CALCIUM 10 MG TAB PO SCH (20:04)
[2019-03-24] MEDS: MELATONIN 3 MG TAB PO PRN (21:40)
[2019-03-25 07:18] VITALS: BP 144/70
[2019-03-25] MEDS: CARBIDOPA/LEVODOPA 25 MG/100 MG TAB PO SCH ×3 (08:14→14:51)
[2019-03-25] MEDS: LIPASE 12,000/AMYLASE/PROTEASE (CREON) 1 CAP PO SCH (08:15)
[2019-03-25] MEDS: CYANO/VITAMIN B12 1000 MCG TAB PO SCH (08:15)
[2019-03-25] MEDS: FOLIC ACID 1 MG TAB PO SCH (08:15)
[2019-03-25] MEDS: FLUoxetine 20 MG CAP PO SCH (08:15)
[2019-03-25] MEDS: lamoTRIgine 100 MG TAB PO SCH (08:16)
[2019-03-25] MEDS: RIVASTIGMINE TARTRATE 1.5 MG CAP PO SCH (08:16)
[2019-03-25] MEDS: CHOLECALCIFEROL VIT D3 2,000 UNITS TAB/CAP PO SCH (08:16)
[2019-03-25] MEDS: PSYLLIUM METAMUCIL 1 PKT PO SCH (08:17)
[2019-03-25] MEDS: ASPIRIN 81 MG CHEWABLE TAB PO SCH (08:17)
[2019-03-25] MEDS: ENOXAPARIN 40 MG/0.4 ML SYR SC SCH (08:18)
[2019-03-25] MEDS: (Icosapent Ethyl [Vascepa] 2 GM) PO SCH (10:20)
--- NOTE | 2019-03-25 12:45 | PDIAF ---
- Diagnosis Diagnosis: Vertigo, parkinson's Code Status: Do Not Resuscitate - Medication Management Discharge Medications: electronically signed and located in the Home Medication List. - Orders Services needed: Registered Nurse, Certified Assignment Editor, Physical Therapy, Occupational Therapy Diet Recommendation: no restrictions on diet Diet Texture: Regular Texture Diet Additional Instructions: Follow up with Neurologist. Dr. Lynne - Follow Up Care Current Providers and Referrals: Patient,NotPresent [Unknown] - As per Instructions Daryn Almanzar MD [Medical Doctor] -
--- NOTE | 2019-03-25 13:02 | GDS ---
[f rep st] DISCHARGE SUMMARY Please see full dictated discharge summary from 03/24/2019 for full details. The patient stayed over night awaiting insurance authorization. There were no acute events in the past 24 hours. She is act ually feeling better with less vertigo. She is eating and drinking without issue. PHYSICAL EXAMINATION: VITAL SIGNS: Today, temperature 36.6, blood pressure is 177/70, heart rate is in 60s, respirations 14, 95% on room air. GENERAL: She is brighter. No acute distress. Sitting u p eating. HEENT: PERRLA. Moist mucous membranes. CV: Regular rate and rhythm. LUNGS: Clear. A BDOMEN: Soft, nontender, nondistended. Positive bowel sounds. : No Mar. MUSCULOSKELETAL: 5/ 5 upper and lower extremity strength. NEURO: Resting tremor. PSYCH: Alert and oriented x3. Time spent on discharge greater than 30 minutes coordinating the case management, providing the patie nt with followup recommendations. /[id number]/MODL
--- NOTE | 2019-03-25 14:11 | ASMTLACE ---
LACE Length of stay for Answers: 4-6 days current admission Acuity / Level of Answers: Yes Care: Did the patient have an inpatient admission? Comorbidities - select Answers: Coronary Artery Disease all that apply Mild liver or renal disease Other Notes: Parkinson's disease; HT N # of Emergency department Answers: 1-2 visits in the last 6 months Score: 13 Date Signed: 03/25/2019 02:11 PM Electronically Signed By:Concetta Viveros RN
--- NOTE | 2019-03-25 14:26 | ASMTDCNOTE ---
Case Management Discharge Discharge Order Complete? Answers: Yes Patient to Obtain Answers: Other Notes: [facility] Medications Transportation Arranged Answers: Other Notes: [facility] Transport will Pick (Date 03/25/2019 03:00 PM & Time) Faxed Final Orders Answers: Yes Agency/Facility Transfer Answers: Yes Report Printed & Faxed to Receiving Agency Discharge Comments Notes: D/justin OZUNA, final orders faxed. Danny at [facility], [place] to call report. Date Signed: 03/25/2019 02:25 PM Electronically Signed By:Concetta Viveros RN
--- NOTE | 2019-03-26 14:42 | ASDISCHSUM ---
Discharge Information Plan Status:SNF Medically Cleared to Leave: Discharge Date:03/25/2019 03:01 PM D/C Disposition:[facility] Facility ADT D/C Disposition:[facility] Facility Projected Discharge Date:03/22/2019 11:00 AM Transportation at D/C:Wheelchair Van Discharge Delay Reason: Follow-Up Date:03/22/2019 11:00 AM Discharge Slot: Final Diagnosis: Placement Information Referral Type:*Half-Way/SNF Referral ID:[id number] Provider Name:[facility] Address 1:[address] Address 2: City:[place] Selection Factors: State:[place] Referral Type:*Home Health Care Services Referral ID:[id number] Provider Name: Address 1: Phone Number: Address 2: Fax Number: City: Selection Factors: State: Patient Contact Information Contact Name:LYNDSEY Relationship:Son Address:[address] Work Phone: City:[place] Alternate Phone: [facility]/Zip Code:[place] [address] Email: Financial Information Financial Class:Medicare Primary Plan Desc:MEDICARE INPATIENT Primary Plan Number:[id number] Secondary Plan Desc:[employer]/MDR SUPPLEMENT Secondary Plan Number:[id number] Assessment Information LACE LACE Length of stay for Answers: 4-6 days current admission Acuity / Level of Answers: Yes Care: Did the patient have an inpatient admission? Comorbidities - select Answers: Coronary Artery Disease all that apply Mild liver or renal disease Other Notes: Parkinson's disease; HT N # of Emergency department Answers: 1-2 visits in the last 6 months Score: 13 Date Signed: 03/25/2019 02:11 PM Electronically Signed By:Concetta Viveros RN [facility] CM Progress Note CM Note CM Note Notes: 03/19/2019 Case Management Note Pt admitted for dizziness with a history of Parkinsons and bipolar. Met w/pt. Pt resides [facility]. Pt attends [facility]. Pt uses [facility] for transport or [facility]. Pt daughter nearby for help. Discussed home care. Pt chose [facility]. Notified via allscripts and phone. Case Management d/c poc: Home with [facility] RN PT OT. Case Management to follow. Date Signed: 03/19/2019 12:56 PM Electronically Signed By:Martha Laughlin RN [facility] CM Progress Note CM Note CM Note Notes: CM reviewed pts chart. PT is recommending pt follows up with outpatient rehab. OT has cleared pt to d/c home without any needs. CM available for changes. Plan: Independent Date Signed: 03/20/2019 11:50 AM Electronically Signed By:LIDIA Butcher [facility] CM Progress Note CM Note CM Note Notes: CM met with pt. Pt has been accepted and wants to discharged to [facility]. [facility] has been notified that Pt will most likely be discharged 03/23. CM to follow. Plan: [facility] Date Signed: 03/22/2019 03:07 PM Electronically Signed By:Laura Gaffney [facility] Progress Note CM Note CM Note Notes: Spoke with patient who was having some doubts about [facility]. Patient's questions and concerns were addressed and she is now supportive of going to [facility]. Patient did state she was not feeling well at all today and she had a return of serious vertigo and hallucinations. She wonders if her medications could be part of this. She hopes to see a neurologist while she is here for a consult. Spoke with Dr. Corrales to let her know patient's concerns. Discharge may be delayed until tomorrow while Dr. Corrales investigates patient's current symptoms. CM will follow. Date Signed: 03/23/2019 03:04 PM Electronically Signed By:Lauren Fraga LCSW [facility] Progress Note CM Note CM Note Notes: Spoke with [facility] who thought patient was going to change to home health care. Patient will need SNF placement and so a PASRR was completed and submitted for the patient. to talk to Harman tomorrow to see if we can expedite the process ([phone]). Patient was informed about the need for some additional paperwork which will slightly delay the discharge. [facility] has accepted but the PASRR triggered. CM will follow. Date Signed: 03/24/2019 04:27 PM Electronically Signed By:Lauren Fraga LCSW Case Management Discharge Plan Note Case Management Discharge Discharge Order Complete? Answers: Yes Patient to Obtain Answers: Other Notes: [facility] Medications Transportation Arranged Answers: Other Notes: [facility] Transport will Pick (Date 03/25/2019 03:00 PM & Time) Faxed Final Orders Answers: Yes Agency/Facility Transfer Answers: Yes Report Printed & Faxed to Receiving Agency Discharge Comments Notes: Oralia/justin OZUNA, final orders faxed. Danny at [facility], TERRELL to call report. Date Signed: 03/25/2019 02:25 PM Electronically Signed By:Concetta Viveros RN Intervention Information Intervention Type:*GRIS-Signed Date of Service:03/19/2019 09:53 AM Patient Type:Observation Staff Member:Cassy Bernabe Hours: Discipline: Severity: Comment: Intervention Type:*SHO-Signed Date of Service:03/24/2019 11:31 AM Patient Type:Inpatient Staff Member:Cassy Bernabe Hours: Discipline: Severity: Comment:
== END 2019-03-25 15:01 | DRG 149 ==
LOC: EDUNIT# → F3N 14:48 → OBSVTOIN 03-19 12:11
PROVIDERS: ADMIT Hospitalist; ATTEND Hospitalist
DX: H81.10 Benign paroxysmal vertigo, unspecified ear (principal); E86.9 Volume depletion, unspecified; G20 Parkinson's disease; I10 Essential (primary) hypertension; I25.10 Atherosclerotic heart disease of native coronary artery without angina pectoris; I25.2 Old myocardial infarction; Z95.5 Presence of coronary angioplasty implant and graft; J45.909 Unspecified asthma, uncomplicated; F31.9 Bipolar disorder, unspecified; N32.81 Overactive bladder
CPT/HCPCS: 70551-PN; 97112-GP; 97116-GP; 97162-GP; 97166-GO; 97530-GO; 97530-GP; 97535-GO; G0378; J1650; J2405